=== PATIENT | female | born 1985 | race African-American/Black ===

== ENCOUNTER 2019-04-19 21:23 | Emergency (ER) | payer OTHER, MEDICAID, SELFPAY ==
[2019-04-19 21:44] VITALS: BP 110/65; PULSE 90; RESP 20; TEMP 36.4; O2SAT 100
--- NOTE | 2019-04-19 21:50 | ED.URI ---
HPI - URI/Sore Throat General Chief Complaint: Upper Respiratory Infection Stated Complaint: cold symptoms Time Seen by Provider: 04/19/19 21:33 Source: patient Mode of arrival: ambulatory Limitations: no limitations History of Present Illness HPI Narrative: This is a 34 year old female that presents to the ER for cold symptoms x 2 weeks. Reports initially she had fatigue, cough, congestion, sore throat and subjective fevers. Reports now still has a lingering dry cough and hoarseness. Denies chest pain or shortness of breath. Related Data Allergies Allergy/AdvReac Type Severity Reaction Status Date / Time No Known Allergies Allergy Unverified 07/05/18 07:24 Review of Systems Review of Systems: Narrative: CONSTITUTIONAL: Reports fever, chills ENT: Reports rhinorrhea, congestion, sore throat. Denies otalgia. CARDIOVASCULAR: Denies chest pain RESPIRATORY: Reports cough. Denies dyspnea. All systems reviewed & are unremarkable except as noted in HPI and below PMFSH Surgical History Surgical History (Updated 04/19/19 @ 21:54 by Alyssa Soto PA-C) History of umbilical hernia repair Family History Family History (Updated 04/23/18 @ 10:20 by DOCTOR UNKNOWN) Mother Patient's mother is in good health Father Patient's father is in good health Sibling Patient's sister is in good health Social History Social History Smoking status: Never smoker Alcohol intake: never Gender identity (if verbalized by the patient): Female Exam Narrative: Exam Narrative: GENERAL: Well-appearing, well-nourished, and in no acute distress. HEAD: Normocephalic, atraumatic. EYES: EOMI. ENT: Turbinates swollen and pale. Mucous membranes moist. Oropharynx without tonsillar hypertrophy exudate or other lesions. Bilateral TMs pearly rangel non-bulging NECK: Supple. No adenopathy or masses. CHEST: Clear to auscultation. No respiratory distress. No wheezes rales or rhonchi HEART: Regular rate and rhythm. No murmur heard. Normal peripheral pulses. EXTREMITIES: Normal range of motion. No edema. SKIN: Warm, dry, no rash. NEURO: No focal deficits. Alert and oriented x3. PSYCH: Normal mood and affect Course Vital Signs Vital signs: Vital Signs Temperature 97.5 F L 04/19/19 21:44 Pulse Rate 90 04/19/19 21:44 Respiratory Rate 20 04/19/19 21:44 Blood Pressure 110/65 04/19/19 21:44 Pulse Oximetry 100 04/19/19 21:44 Temperature 97.5 F L 04/19/19 21:44 Pulse Rate 90 04/19/19 21:44 Respiratory Rate 20 04/19/19 21:44 Blood Pressure 110/65 04/19/19 21:44 Pulse Oximetry 100 04/19/19 21:44 MDM - URI/Sore Throat MDM Narrative Medical decision making narrative: Patient presents the emergency department for cold symptoms x2 weeks. Reports initially fevers, cough, congestion and sore throat. Reports now she still has a lingering dry cough and some hoarseness. Patient is afebrile and nontoxic-appearing. Lungs are clear on exam. Strep is negative. Patient is influenza A+. Although, patient is outside of treatment window. Patient was instructed on continued symptomatic care of viral infection. She is to follow up with her PCP. Patient was given warnings to return to the ER Lab Data Attestation: I reviewed the patient's lab results. Labs: Influenza A Screen Positive Reference Range: Negative Influenza B Screen Negative Reference Range: Negative Strep Screen Presumptive Negative *(Reference Range: Negative)* Strep Screen Presumptive Negative *(Reference Range: Negative)* Critical Care Time Critical Care Time Critical Care Time: No Discharge Plan Discharge Clinical Impression: Influenza A Patient Disposition: Home, Self-Care Condition: Stable Instructions: Influenza (ED) Additional Instructions: Return to the emergency department for worsening symptoms, or any other concerns Remain well-hydrated, get
== END 2019-04-19 22:27 | disposition home or self-care (01) ==
PROVIDERS: Emergency Provider Emergency Medicine
DX: J10.1 Influenza due to other identified influenza virus with other respiratory manifestations (principal)
CPT/HCPCS: 87081; 87804; 87880; 99283

== ENCOUNTER 2021-11-06 13:29 | Outpatient (CLI) | payer OTHER, SELFPAY ==
--- NOTE | ~2021-11-06 | CT_ITS ---
EXAMINATION: CT abdomen wo con DATE: 11/06/2021 14:27 INDICATION: Umbilical hernia TECHNIQUE: Computed tomography (CT) of the abdomen was performed without intravenous contrast. Automa sam exposure control and iterative reconstruction technique were employed. Exam dose: 163.38 mGy-cm total exam DLP. COMPARISON: 03/04/2018 CT abdomen pelvis FINDINGS: The lung bases are clear of infiltrate or consolidation. Normal heart size. No pericardial or pleural effusion. The liver, gallbladder, bile ducts, spleen, pancreas, pancreatic duct, and adrenal glands and kidneys are unremarkable on this limited noncontrast examination. Normal caliber of the abdominal aorta. No intraperitoneal or retroperitoneal mass lesion or adenopathy or ascites is evident. There is soft tissue density thickening subjacent to the umbilicus, without apparent hernia. There is however a midline supraumbilical ventral abdominal wall hernia approximately 5 cm superior t o the umbilicus, containing fat and fluid density. The neck of this hernia measures approximately 10. 7 mm width, the hernia measuring up to approximately 16 mm depth, 38 mm transverse and 34 mm vertical dimension. Included skeletal structures are unremarkable. IMPRESSION: Midline supraumbilical fat and fluid containing midline ventral abdominal wall hernia Probable surgical repair of umbilical hernia Reviewed, dictated and finalized at [facility]. Reviewed, dictated and finalized at [facility]. IMPRESSION: Midline supraumbilical fat and fluid containing midline ventral ab dominal wall hernia Probable surgical repair of umbilical hernia
== END 2021-11-06 13:30 | disposition home or self-care (01) ==
PROVIDERS: PCP Family Medicine; Visit Provider Surgery
DX: K43.9 Ventral hernia without obstruction or gangrene (principal)
CPT/HCPCS: 74150

== ENCOUNTER 2021-11-20 01:48 | Day surgery (SDC) | payer OTHER, SELFPAY ==
[2021-11-13 14:13] VITALS: BMI 26.6
--- NOTE | 2021-11-13 14:20 | PC.NURSE ---
Report to the Outpatient Waiting Room, entrance under the green pavilion located off [facility], at time 0600 on date 11/20/21. OR Time: 0730. Time changes happen often and if your time is changed the preop area will call you the afternoon before. - You and your visitor will be asked to self-screen and do not enter if you have any COVID symptoms. - Only one visitor and NO children visitors are allowed at this time. - The patient visitor is requested to leave or wait in car when not with patient due to restrictions. - A mask is required within the hospital. Patients may have clear liquids (water, carbonated beverages, clear teas, apple juice) until 3 hours prior to surgery with a maximum of 20 ounces. - No food from midnight until time of surgery Take the following medications with a SIP of water the morning of surgery: N/A Medications to discontinue per physician: N/A Date to take last dose: N/A Please no make-up, nail azeri, hairspray, perfume, deodorant, or body powder the day of surgery. No jewelry (including any body piercings) or valuables the day of surgery, leave them at home. Please take a shower or bath the night before, or the morning of, surgery with an antibacterial soap. Wear comfortable, loose fitting clothing. - Jewelry must be removed prior to entering the operating room. Rings and piercings that are not removed may be cut off. - The hospital will not accept responsibility for valuables. - Please leave all valuables, including medications, at home the day of surgery. If you are going home after surgery, a licensed wheat combine driver must drive you home. - NO public transportation without another adult. - We recommend that an adult stay with you for 24 hours following discharge. - We also recommend that you do not drive, make important decision, drink alcoholic beverages, or take any drugs that were not prescribed by your health care provider for at least 24 hours after your discharge time. Follow any additional instructions given to you from your surgeon. If you or anyone in your household have experienced Covid symptoms in the past week, please notify your surgeon or the nurse liaison at the phone number below for possible testing. Telephone instructions given to PT - TAMELA PÉREZ and asked if any additional questions and then verbalized understanding. Patient advised to call surgeon office or pre surgery nurse liaison [phone] if any additional questions.
--- NOTE | 2021-11-19 14:19 | WPDANESEPPF ---
Anes - Initial Pre Proc Eval Procedure: Operation Date: 11/20/21 07:30 Proposed Procedures p Open Epigastric Hernia Repair, Possible Mesh - Adonay Golden DO Date/Time: 11/19/21 14:19 Surgeon: Adonay Golden DO Pre Op Diagnosis: epigastric hernia Patient Data Age: 36 Gender: F Height: 1.56 m Weight: 64.86 kg Allergies Allergy/AdvReac Type Severity Reaction Status Date / Time Sulfa (Sulfonamide Allergy Cramping Verified 11/13/21 14:12 Antibiotics) of the Muscles Home Medications Medication Instructions Recorded Confirmed Type No Home Medications 10/30/21 11/13/21 History Patient hx anesthesia problems: none Family hx anesthesia problems: none Results Review: All pre-operative results and documents have been reviewed as part of the pre-operative evaluation. FOR[facility]LY [facility] Past Medical History Medical History History of blood transfusion Surgical History Surgical History History of umbilical hernia repair S/P LEEP (loop electrosurgical excision procedure) S/P wisdom tooth extraction Status post bilateral salpingectomy Family History Family History Mother Patient's mother is in good health Father No problems noted. Sibling Patient's sister is in good health Social History Social History Smoking status: Never smoker Alcohol intake: never Substance use: never Substance use type: does not use Living arrangements: with family Additional living arrangements comments: CHILDREN Gender identity (if verbalized by the patient): Female Spiritual care concerns: No Anes - Eval Final PreProcedure Day of Procedure 11/19/21 14:19 Patient weight: overweight Heart: regular rate and rhythm Lungs: clear to auscultation and normal air movement Airway: Mallampati scale class II Neurological: alert and oriented Last oral intake: >/= 8 hours ASA classification: II Emergent: no Anesthetic plan: proceed Anesthesia type and monitoring: general LMA Results Review: All pre-operative results and documents have been reviewed as part of the pre-operative evaluation. Informed Consent: The patient's anesthetic plan and its attendant risks and benefits were discussed with the patient/family/POA. Questions were solicited and answers provided to the satisfaction of the patient/family/POA.
[2021-11-20] VITALS (8 sets, daily range): BP systolic 99–124; BP diastolic 55–84; PULSE 67–77; RESP 15–20; TEMP 36.4–36.7; O2SAT 100
[2021-11-20] MEDS: KETOROLAC 15 MG/ML VIAL (*BKC) IV PUSH (06:36)
[2021-11-20] MEDS: ACETAMINOPHEN 500 MG TABLET 1000 MG PO (06:36)
[2021-11-20] MEDS: LACTATED RINGERS 1,000 ML 30 ML IV CONT (06:38)
--- NOTE | 2021-11-20 07:17 | WPDHPUPDATE1 ---
History and Physical Update Update Date/Time: 11/20/21 07:17 History and Physical has been reviewed, including an updated exam of the patient. There are NO changes in the patient's condition. Risks, benefits, and alternatives have been discussed and questions answered. Patient agrees to proceed with procedure.
--- NOTE | 2021-11-20 07:17 | PM.IMHP ---
H&P: HPI History of Present Illness Date/Time: 11/20/21 07:17 Chief Complaint: epigastric pain Narrative: 36 yo woman presents with a hernia in the epigastric region. She had a CT recently and results were discussed over the phone. She now presents for open epigastric hernia repair with possible mesh. Review of Systems Review of Systems: All systems reviewed & are unremarkable except as noted in HPI and below Constitutional: Constitutional: Denies chills, Denies fever(s), Denies headache(s) and Denies weight loss Eyes: Eyes: Denies change in vision ENT: Denies dizziness, Denies headache(s), Denies neck mass and Denies throat swelling Cardiovascular: Cardiovascular: Denies chest pain, Denies lightheadedness and Denies dyspnea Respiratory: Respiratory: Denies cough, Denies dyspnea and Denies wheezing Gastrointestinal: Gastrointestinal: Denies abdominal pain, Denies change in bowel habits, Denies nausea and Denies vomiting Genitourinary: Genitourinary: Denies hematuria and Denies dysuria Musculoskeletal: Musculoskeletal: Reports as per HPI Integumentary/Breasts: Skin/Breast: Reports as per HPI Neurologic: Denies dizziness and Denies headache(s) Allergic/Immunologic: Allergic/Immunologic: Denies throat swelling and Denies wheezing PMFSH Past Medical History Medical History History of blood transfusion Surgical History Surgical History History of umbilical hernia repair S/P LEEP (loop electrosurgical excision procedure) S/P wisdom tooth extraction Status post bilateral salpingectomy Family History Family History Mother Patient's mother is in good health Father No problems noted. Sibling Patient's sister is in good health Social History Social History Smoking status: Never smoker Alcohol intake: never Substance use: never Substance use type: does not use Living arrangements: with family Additional living arrangements comments: CHILDREN Gender identity (if verbalized by the patient): Female Spiritual care concerns: No Meds Home Medications and Allergies Home Medications Medication Instructions Recorded Confirmed Type No Home Medications 10/30/21 11/13/21 History Allergies Allergy/AdvReac Type Severity Reaction Status Date / Time Sulfa (Sulfonamide Allergy Cramping Verified 11/13/21 14:12 Antibiotics) of the Muscles Exam Const: General: no acute distress and alert Orientation/consciousness: patient oriented x3 HENMT: Head: normocephalic and atraumatic Ears: hearing grossly normal bilaterally Face/Nose/Sinus: Normal nares present Mouth: Yes Normal oral and palatal mucosa present Eyes: Periorbital: periorbital findings normal Sclera: sclerae normal EOM: EOMs intact bilaterally Neck: Neck: normal visual inspection, no lymphadenopathy and trachea midline Chest: Chest palpation & inspection: normal inspection of the chest Resp: Effort & Inspection: normal respiratory effort Auscultation: clear to auscultation bilaterally Cardio: Jugular venous distension: no JVD Rate: regular rate Rhythm: regular rhythm Heart sounds: S1 normal heart sound present and S2 normal heart sound present Peripheral pulses: Peripheral pulses 2+ throughout GI: Inspection: normal to inspection GI Palp: Yes Soft to palpation, No Tenderness to palpation present (GI), No Guarding due to palpation present (GI) and No Rebound tenderness present Percussion: Yes normal to percussion Auscultation: normal bowel sounds Other: epigastric hernia : General: Yes no CVA tenderness Back/Spine/Pelvis: Back: no CVA tenderness Neuro: General: patient oriented x3, no focal motor deficits and CN's II-XI intact bilaterally Cognition (Neuro): n
[2021-11-20] MEDS: ceFAZolin 2 GM/D5W 50 ML 2 GM/50 ML BAG IVPB (07:30)
[2021-11-20] MEDS: BUPIVACAINE/EPINEPHRINE 0.25% 50 ML VIAL 30 ML INFILTRATE (07:36)
[2021-11-20 07:41] LABS: Beta HCG Quantitative < 2.39 mIU/ML
--- NOTE | 2021-11-20 08:25 | P.OP_ITS ---
Procedure Note - Detailed Date of Procedure 11/20/21 Pre-op Diagnosis epigastric hernia Post-op Diagnosis Same Procedure Performed Epigastric hernia repair Surgeon Adonay Golden, DO Anesthesia General and Local (0.25% bupivacaine with epinephrine) Indications This is a 36-year-old woman who presented with a bulge in her upper abdomen. She was noticing some pain and discomfort with this and would have to lay down to relieve the pain. The bulge had gotten slightly larger with time. A CT was obtained which confirmed evidence an epigastric hernia containing fat. Discussions were made with the patient about treatment options and decision was made to proceed with open epigastric hernia repair with possible mesh. Findings Epigastric hernia repair was performed. The patient was found have a 1 cm epigastric hernia containing preperitoneal fat. The hernia sac was excised and sent to the lab for pathology. The decision was made to close the hernia primarily and not use mesh. No other abnormalities were noted. Description of Procedure Procedure as well as risks, benefits, and alternatives were discussed with the patient. Written consent was obtained and placed in chart prior to procedure. Patient was brought back to surgical suite. She was placed supine on operating table. Time-out was done to confirm patient and procedure. She was then intubated by the anesthesia department. Her abdomen was prepped and draped in sterile fashion using chlorhexidine prep. 0.25% bupivacaine with epinephrine was infiltrated locally around the hernia. A 3 cm transverse incision was made directly over the hernia defect using a 10 blade scalpel. Electrocautery was used for hemostasis and for dissection through the subcutaneous tissue. The hernia sac was identified and this was carefully cleared from the surrounding subcutaneous attachments using electrocautery. Hernia sac was dissected down to the level of the fascia and then the hernia sac was excised at the level of the fascia using electrocautery. The hernia defect was then inspected and this appeared to be about 1 cm wide. The fascia appeared to come together without any tension therefore decision was made to repair this primarily. 0 Ethibond [id number] sutures were used to approximate the fascia in a transverse fashion. A total of 3 sutures were placed to bring the fascia together. The sutures were tied down in place and the repair was then inspected and appeared secure. No other abnormalities were noted. 0.5% bupivacaine with epinephrine was infiltrated locally around the fascia. Alejandro's fascia was then reappro ximated using 3-0 Vicryl simple interrupted sutures. The skin was then reapproximated using 4-0 Monocryl running subcuticular suture. Exofin glue was then applied on top. The patient was then awakened from anesthesia, extubated, and transferred to recovery. Estimated Blood Loss 5 Pathology Yes (Hernia sac) Complications No immediate complications Condition Stable Disposition Same day [facility] Billing Surgery - Charge Forward: Surgery Billing
[2021-11-20] MEDS: oxyCODONE HCL (*CRX) 5 MG TAB IR PO (09:40)
--- NOTE | 2021-11-20 10:26 | SUR.PHASEII ---
Vital signs stable, patient dressed, IV out- waiting on ride.
== END 2021-11-20 10:40 | disposition home or self-care (01) ==
PROVIDERS: Anesthesiology; PCP Family Medicine; Visit Provider Surgery
PROC: 0WQF0ZZ Repair Abdominal Wall, Open Approach (ICD-10-PCS; CPT 49570; principal; 2021-11-20 07:30)
DX: K43.9 Ventral hernia without obstruction or gangrene (principal); R10.9 Unspecified abdominal pain
CPT/HCPCS: 49570; 36415; 84702; 88302; A9270; J0690; J1100; J1170; J1885; J2250; J2405; J2704; J3010; J7120